=== PATIENT | male | born 1990 | race Two or more races ===

== ENCOUNTER 2024-07-13 08:18 | Emergency (ER) | payer OTHER ==
[2024-07-13 08:36] VITALS: BMI 60.5
[2024-07-13 09:18] LABS: ABSOLUTE IMMATURE GRANULOCYTES 0.06 x10^3/uL (0.0-0.031); BASOPHILS # 0.08 x10^3/uL (0.01-0.08); EOSINOPHIL % 1.8 % (0.8-7.0); EOSINOPHILS # 0.28 x10^3/uL (0.04-0.54); HEMATOCRIT 49.8 % (40.1-51.0); HEMOGLOBIN 15.7 g/dL (13.7-17.5); MCHC 31.5 g/dl (32.3-36.5); MEAN CELL VOLUME 81.4 fl (79.0-92.2); MONOCYTE # 0.92 x10^3/uL (0.30-0.82); MONOCYTE % 5.9 % (5.3-12.2); RDW 13.3 % (12.0-15.6)
[2024-07-13 09:33] LABS: CHLORIDE 101 mmol/L (98-107); SODIUM 137 mmol/L (136-145)
[2024-07-13 09:35] LABS: ALBUMIN 3.9 g/dl (3.4-5.0)
[2024-07-13 09:36] LABS: ANION GAP 5 mmol/L (4-13); BLOOD UREA NITROGEN 13.7 mg/dL (7-18); CO2 30 mmol/L (21-32); GLUCOSE,RANDOM 106 mg/dL (74-106)
[2024-07-13 09:39] LABS: CREATININE 1.2 mg/dL (0.55-1.3); SGOT/AST 25 U/L (15-37); SGPT/ALT 27 U/L (13-61)
[2024-07-13 09:40] LABS: BILIRUBIN,TOTAL 0.8 mg/dL (0.2-1); TOT PROT 7.6 g/dl (6.4-8.2)
[2024-07-13 09:41] LABS: ALK PHOS 80 U/L (45-117)
[2024-07-13 09:44] LABS: ACTIVATED PTT 27.8 SECONDS (25.2-36.5); INR 1.18 (0.83-1.09); PROTHROMBIN TIME (PATIENT) 12.9 SEC (9.7-13.0)
[2024-07-13 10:49] VITALS: BP 123/72; PULSE 72; RESP 22; TEMP 97.7
== END 2024-07-13 10:52 | disposition short-term general hospital (02) ==
LOC: JER 08:18
DX: H53.30 Unspecified disorder of binocular vision (principal); R51.9 Headache, unspecified; H54.61 Unqualified visual loss, right eye, normal vision left eye
CPT/HCPCS: 36415; 80053; 85025; 85610; 85730; 86140; 86850; 86900; 86901; 93005; 93010; 99285-25